=== PATIENT | male | born 1985 | race Caucasian/White ===

== ENCOUNTER 2019-04-19 00:17 | Emergency (ER) | payer OTHER ==
[~2019-04-19] VITALS: Ht 193 cm; Wt 100.5 kg
--- NOTE | 2019-04-19 00:51 | PHYS DOC ---
Adult General Chief Complaint Chief Complaint: WRIST PAIN HPI HPI 34-year-old male presents with right rib pain and right wrist pain. The patient was riding a skateboard of [employer] yesterday afternoon when he fell and hit a rail on his right lateral ribs and then his right wrist at the ground. The patient has had pain since that time. He was attempting to get through the night and drank back home, but the pain is more than he can deal with. He is concerned about rib fracture and wrist fracture. He denies any altered sensation, numbness or tingling. He denies any other injuries. Review of Systems Review of Systems Constitutional: Denies fever or chills [] Eyes: Denies change in visual acuity, redness, or eye pain [] HENT: Denies nasal congestion or sore throat [] Respiratory: Denies cough or shortness of breath [] Cardiovascular: No additional information not addressed in HPI [] GI: Denies abdominal pain, nausea, vomiting, bloody stools or diarrhea [] : Denies dysuria or hematuria [] Musculoskeletal: Right lateral rib pain, right wrist pain[] Integument: Denies rash or skin lesions [] Neurologic: Denies headache, focal weakness or sensory changes [] Endocrine: Denies polyuria or polydipsia [] All other systems were reviewed and found to be within normal limits, except as documented in this note. Allergies Allergies Allergies Coded Allergies Type Severity Reaction Last Updated Verified No Known Drug Allergies 04/19/19 No Physical Exam Physical Exam Constitutional: Well developed, well nourished, no acute distress, non-toxic appearance. [] HENT: Normocephalic, atraumatic, bilateral external ears normal, oropharynx moist, no oral exudates, nose normal. [] Eyes: PERRLA, EOMI, conjunctiva normal, no discharge. [] Neck: Normal range of motion, no tenderness, supple, no stridor. [] Cardiovascular:Heart rate regular rhythm, no murmur [] Lungs & Thorax: Bilateral breath sounds clear to auscultation. Abrasion over the right lateral ribs, tenderness to palpation [] Abdomen: Bowel sounds normal, soft, no tenderness, no masses, no pulsatile masses. [] Skin: Warm, dry, no erythema, no rash. [] Back: No tenderness, no CVA tenderness. [] Extremities: Swelling and tenderness of the right posterior wrist[] Neurologic: Alert and oriented X 3, normal motor function, normal sensory function, no focal deficits noted. [] Psychologic: Affect normal, judgement normal, mood normal. [] EKG EKG [] Radiology/Procedures Radiology/Procedures [] Impressions: INDICATION: Trauma COMPARISON: None. IMPRESSION: 7 views of chest and right RIBS. Cardiac silhouette is not enlarged. No definite focal airspace consolidation. No evidence of pneumothorax. No definite displaced right rib fracture is seen. Electronically signed by: Tomeka Rust MD (04/19/2019 1:47 AM) [id number] DICTATED AND SIGNED BY: TOMEKA RUST MD DATE: 04/19/19 0147 CC: IVANIA CRUM DO; NON,STAFF ~ INDICATION: Trauma COMPARISON: None. IMPRESSION: Right wrist: 3 views obtained. There is some degenerative changes including osteophyte formation at the basal joint. There are some ossific fragments seen posterior to the carpal bones which could be secondary to small fracture fragments of unknown age. Would correlate with point tenderness in the region. Electronically signed by: Tomeka Rust MD (04/19/2019 2:55 AM) [id number] DICTATED AND SIGNED BY: TOMEKA RUST MD DATE: 04/19/19 0255 CC: IVANIA CRUM DO; NON,STAFF ~ Course & Med Decision Making Course & Med Decision Making Pertinent Labs and Imaging studies reviewed. (See chart for details) I have given the patient 1 Hutchins 5/325 in the emergency room for his pain. He has a friend who will drive for him. The patient has a wrist fracture. We will place him in a splint. He does not appear to have an obvious rib fracture. I will discharge him with a short course of Hutchins and advised to follow-up with orthopedics. He is stable for discharge at this time. [] Dragon Disclaimer Dragon Disclaimer This electronic medical record was generated, in whole or in part, using a voice recognition dictation system. Departure Departure: Impression: Primary Impression: Fracture of right wrist Additional Impression: Contusion of rib on right side Disposition: 01 HOME, SELF-CARE Condition: STABLE Referrals: NON,STAFF (PCP) Patient Instructions: Rib Contusion, Wrist Fracture, [id number] Scripts Hydrocodone Bit/Acetaminophen (NORCO 5-325 TABLET) 1 Each Tablet 1 TAB PO PRN Q6HRS PRN for PAIN, #14 TAB 0 Refills Prov: IVANIA CRUM DO 04/19/19 Problem Qualifiers Primary Impression: Fracture of right wrist Encounter type: initial encounter Fracture type: closed Qualified Codes: S62.101A - Fracture of unspecified carpal bone, right wrist, initial encounter for closed fracture Additional Impression: Contusion of rib on right side Encounter type: initial encounter Qualified Codes: S20.211A - Contusion of right front wall of thorax, initial encounter IVANIA CRUM DO Apr 19, 2019 00:51
[2019-04-19] MEDS ORDERED: HYDROcodone/APAP 5/325MG 1 TAB TABLET PO ONE ×2 (01:00→03:00)
[2019-04-19] MEDS ORDERED: HYDR-3165 PO (01:34)
--- NOTE | 2019-04-19 01:49 | RAD ---
INDICATION: Trauma COMPARISON: None. IMPRESSION: 7 views of chest and right RIBS. Cardiac silhouette is not enlarged. No definite focal airspace consolidation. No evidence of pneumothorax. No definite displaced right rib fracture is seen. Electronically signed by: Sridhar Rust MD (04/19/2019 1:47 AM) [id number]
[2019-04-19 02:30] VITALS: BP 153/97
[2019-04-19] MEDS ORDERED: NAPROXEN 500 MG TABLET ONE (02:51)
--- NOTE | 2019-04-19 02:58 | RAD ---
INDICATION: Trauma COMPARISON: None. IMPRESSION: Right wrist: 3 views obtained. There is some degenerative changes including osteophyte formation at the basal joint. There are some ossific fragments seen posterior to the carpal bones which could be secondary to small fracture fragments of unknown age. Would correlate with point tenderness in the region. Electronically signed by: Sridhar Rust MD (04/19/2019 2:55 AM) [id number]
[2019-04-19] MEDS ORDERED: NAPROXEN 500 MG TABLET PO ONE (03:00)
== END 2019-04-19 02:55 | disposition home or self-care (01) ==
LOC: ER 00:17
DX: S62.101A Fracture of unspecified carpal bone, right wrist, initial encounter for closed fracture (principal); S20.211A Contusion of right front wall of thorax, initial encounter; W18.09XA Striking against other object with subsequent fall, initial encounter; Y93.51 Activity, roller skating (inline) and skateboarding; Y92.830 Public park as the place of occurrence of the external cause; Y99.8 Other external cause status
CPT/HCPCS: 29125; 71101; 73110; 99284